=== PATIENT | female | born 1955 | race African-American/Black ===

== ENCOUNTER 2022-07-30 17:47 | Emergency (ER) | payer MEDICAID, OTHER ==
[~2022-07-30] VITALS: Ht 167.6 cm; Wt 78.0 kg
[2022-07-30 17:55] VITALS: BP 216/130
[2022-07-30] MEDS ORDERED: ACETAMINOPHEN 325MG TABLET PO ONE (22:00)
[2022-07-30] MEDS ORDERED: TETANUS, DIPHTHERIA, PERTUSSIS VAC/PF 0.5ML (>10YR OLD) IM ONE (22:00)
[2022-07-30] MEDS ORDERED: TOPUD MT (22:25)
[2022-07-30] MEDS ORDERED: AMOX1TAB16 MT (22:25)
== END 2022-07-30 23:01 | disposition home or self-care (01) ==
LOC: ER 17:47
DX: S51.851A Open bite of right forearm, initial encounter (principal); S50.11XA Contusion of right forearm, initial encounter; I10 Essential (primary) hypertension; W54.0XXA Bitten by dog, initial encounter; Y93.9 Activity, unspecified; Y92.9 Unspecified place or not applicable; Z88.0 Allergy status to penicillin
CPT/HCPCS: 73090; 90471; 90715; 99283

== ENCOUNTER 2024-05-12 21:27 | Emergency (ER) | payer MEDICAID, MEDICARE ==
[~2024-05-12] VITALS: Ht 165.1 cm; Wt 72.6 kg
[~2024-05-12 21:27] MED LIST: AMOX1TAB16 MT; TOPUD MT
[2024-05-12 21:38] VITALS: BP 129/92; PULSE 96; RESP 18; TEMP 98; O2SAT 97
[2024-05-12 23:10] LABS: BASOPHILS % 1.3 % (0.0-2.0); EOSINOPHILS % 0.5 % (0.0-5.0); HEMATOCRIT. 35.7 % (36.0-48.0); HEMOGLOBIN. 11.7 g/dL (12.0-16.0); LYMPHOCYTES % 20.1 % (20.0-50.0); MEAN CORPUSCULAR HEMOGLOBIN 29.5 pg (28.0-32.0); MEAN CORPUSCULAR HGB CONC 32.7 g/dL (31.0-37.0); MEAN CORPUSCULAR VOLUME 90.2 fL (81.0-99.0); MEAN PLATELET VOLUME 8.2 fl (7.4-10.4); MONOCYTES % 11.3 % (2.0-8.0); NEUTROPHILS % 66.8 % (40.0-76.0); PLATELET 252 x1000/uL (130-400); RED BLOOD CELL COUNT 3.96 mill/uL (4.2-5.4); RED CELL DISTRIBUTION WIDTH 13.9 % (11.6-14.6); WHITE BLOOD COUNT 3.5 x1000/uL (4.5-11.0)
[2024-05-12 23:16] LABS: CHLORIDE 97 mEq/L (98-107); POTASSIUM 3.5 mEq/L (3.5-5.1); SODIUM 132 mEq/L (136-145)
[2024-05-12 23:17] LABS: CALCIUM 9.1 mg/dL (8.7-10.4); CARBON DIOXIDE 27 mEq/L (21-32)
[2024-05-12 23:19] LABS: PROTHROMBIN TIME 10.9 sec (9.6-11.0)
[2024-05-12 23:22] LABS: CREATININE 1.4 mg/dL (0.6-1.0); ETHANOL BLOOD 140 mg/dL (<10); GLUCOSE 102 mg/dL (70-105); UREA NITROGEN BLOOD 24 mg/dL (9-23)
[2024-05-12 23:23] LABS: TROPONIN I HIGH SENSITIVITY 6 ng/L (3.0-34)
== END 2024-05-13 00:48 | disposition home or self-care (01) ==
LOC: ER 21:27
DX: R55 Syncope and collapse (principal); I10 Essential (primary) hypertension; Z88.0 Allergy status to penicillin; Z98.890 Other specified postprocedural states
CPT/HCPCS: 36415; 80048; 80320; 84484; 85025; 86850; 86900; 93005; 99284; G0480